=== PATIENT | female | born 1985 | race Caucasian/White ===

== ENCOUNTER 2020-08-18 10:21 | Emergency (ER) | payer OTHER | END 2020-08-18 11:45 | disposition home or self-care (01) | LOC: JVIRT 10:21 | DX: Z11.59 Encounter for screening for other viral diseases (principal) | CPT/HCPCS: C9803; G2012-GT; U0003 ==

== ENCOUNTER 2020-11-25 10:55 | Inpatient (IN) | payer OTHER ==
[2020-11-25] MEDS ORDERED: DINOPROSTONE 10 MG VAGINAL SUPPOSITORY VG ONE (12:00)
[2020-11-25 12:03] VITALS: BMI 34.0
[2020-11-25] MEDS ORDERED: BETAMET ACET/BETAMET NA PH 30 MG/5 ML VIAL IM ONE (12:29)
[2020-11-25 12:44] LABS: BASO % 0.1 % (0-2.0); HEMATOCRIT 36.8 % (32.4-45.2); HEMOGLOBIN 12.1 GM/dL (10.7-15.3); MCH 30.6 pg (25.7-33.7); MCHC 32.9 g/dl (32.0-36.0); MEAN PLT VOLUME 11.7 fl (7.5-11.1); MONO % 6.6 % (3.8-10.2); NEUT % 84.3 % (42.8-82.8); PLATELET COUNT 223 K/MM3 (134-434); RBC 3.95 M/mm3 (3.60-5.2); RDW 13.2 % (11.6-15.6); WHITE BLOOD COUNT 20.1 K/mm3 (4.0-10.0)
[2020-11-25 12:48] LABS: INR 0.94 (0.83-1.09); PROTHROMBIN TIME (PATIENT) 11.4 SEC (9.7-13.0)
[2020-11-25 13:25] LABS: ANISOCYTOSIS 0; MACROCYTOSIS 0; PLATELET ESTIMATE NORMAL
[2020-11-25 13:55] LABS: BLOOD UREA NITROGEN 7.1 mg/dL (7-18); CALCIUM 9.9 mg/dL (8.5-10.1)
[2020-11-25 13:59] LABS: CREATININE 0.6 mg/dL (0.55-1.3)
[2020-11-25 14:24] LABS: SYPHILIS W/ RPR CONF NON-REACTIVE (NONREACTIVE)
[2020-11-25 14:52] LABS: HIV INTERPRETATION NEGATIVE (NEGATIVE)
[2020-11-25] MEDS: DEXTROSE 5%-LACTATED RINGERS 1,000 ML IV SCH (19:12)
[2020-11-26] MEDS ORDERED: MISOPROSTOL 25 MCG TABLET (COMPOUNDED BY PHARMACY) PO SCH (03:46)
[2020-11-26] MEDS: MISOPROSTOL 25 MCG TABLET (COMPOUNDED BY PHARMACY) PO PRN ×2 (04:30→08:50)
[2020-11-26 09:33] LABS: BASO % 0.1 % (0-2.0); HEMATOCRIT 35.9 % (32.4-45.2); HEMOGLOBIN 11.9 GM/dL (10.7-15.3); MCH 30.9 pg (25.7-33.7); MCHC 33.3 g/dl (32.0-36.0); MEAN PLT VOLUME 11.4 fl (7.5-11.1); MONO % 5.2 % (3.8-10.2); NEUT % 84.7 % (42.8-82.8); PLATELET COUNT 225 K/MM3 (134-434); RBC 3.86 M/mm3 (3.60-5.2); RDW 13.2 % (11.6-15.6); WHITE BLOOD COUNT 21.5 K/mm3 (4.0-10.0)
[2020-11-26 12:08] LABS: ANISOCYTOSIS 0; MACROCYTOSIS 0; PLATELET ESTIMATE NORMAL
[2020-11-26] MEDS: LACTATED RINGERS SOLUTION 1000 ML INFUS.BAG IV SCH ×2 (13:31→13:32)
[2020-11-26] MEDS: DEXTROSE 5%-LACTATED RINGERS 1,000 ML IV SCH (18:11)
[2020-11-27 07:55] LABS: BASO % 0.4 % (0-2.0); EOS % 0.6 % (0-4.5); HEMATOCRIT 34.6 % (32.4-45.2); HEMOGLOBIN 11.1 GM/dL (10.7-15.3); LYMPH % 21.2 % (8-40); MCH 30.3 pg (25.7-33.7); MCHC 32.2 g/dl (32.0-36.0); MEAN CELL VOLUME 94.1 fl (80-96); MEAN PLT VOLUME 11.5 fl (7.5-11.1); MONO % 7.1 % (3.8-10.2); NEUT % 70.7 % (42.8-82.8); PLATELET COUNT 216 K/MM3 (134-434); RBC 3.68 M/mm3 (3.60-5.2); RDW 13.5 % (11.6-15.6); WHITE BLOOD COUNT 13.2 K/mm3 (4.0-10.0)
[2020-11-27 11:18] LABS: ANISOCYTOSIS 0; MACROCYTOSIS 1+; OVALOCYTE 1+; PLATELET ESTIMATE NORMAL
[2020-11-27] MEDS: LACTATED RINGERS SOLUTION 1,000 ML IV SCH (14:54)
[2020-11-27 18:30] LABS: PH,URINE 7.5 (5.0-8.0); URINE APPEARANCE CLEAR; URINE BILIRUBIN NEGATIVE (NEGATIVE); URINE COLOR YELLOW; URINE GLUCOSE (UA) NEGATIVE (NEGATIVE); URINE KETONE NEGATIVE (NEGATIVE); URINE LEUK ESTERASE NEGATIVE (NEGATIVE); URINE NITRITE NEGATIVE (NEGATIVE); URINE PROTEIN NEGATIVE (NEGATIVE); URINE UROBILINOGEN 0.2 mg/dL (0.2-1.0)
[2020-11-28] MEDS: LACTATED RINGERS SOLUTION 1,000 ML IV SCH ×2 (08:32→15:33)
[2020-11-28 09:00] LABS: ALBUMIN 2.5 g/dl (3.4-5.0); CALCIUM 8.9 mg/dL (8.5-10.1)
[2020-11-28 09:01] LABS: BLOOD UREA NITROGEN 6.5 mg/dL (7-18)
[2020-11-28 09:05] LABS: BILIRUBIN,TOTAL 0.2 mg/dL (0.2-1); CREATININE 0.5 mg/dL (0.55-1.3)
[2020-12-01 11:48] VITALS: BP 105/72; PULSE 80; TEMP 98
[2020-12-02 15:10] LABS: ALBUMIN % 20.8 % (.); ALPHA-1 FOR UPE 2.7 % (.); TOTAL PROTEIN, URINE 14.7 mg/dL (Not Estab.)
== END 2020-12-01 12:15 | disposition home or self-care (01) | DRG 566 ==
LOC: JLDR 10:55 → J3W 11-26 13:20
PROVIDERS: ADMIT Obstetrics & Gynecology; ATTEND Obstetrics & Gynecology
DX: O41.03X0 Oligohydramnios, third trimester, not applicable or unspecified (principal); O99.213 Obesity complicating pregnancy, third trimester; Z3A.35 35 weeks gestation of pregnancy
CPT/HCPCS: 36415; 59025; 80048; 80053; 81003; 82570; 84156; 84166; 85025; 85610; 85730; 86780; 86850; 86900; 86901; 87081; 87086; 87389; 87491; 87591; 96372; C9803; G0463-25; U0003; U0005

== ENCOUNTER 2020-12-23 12:40 | Inpatient (IN) | payer OTHER ==
[2020-12-23] MEDS ORDERED: DINOPROSTONE 10 MG VAGINAL SUPPOSITORY VG ONE (14:00)
[2020-12-23 14:21] VITALS: BMI 34.7
[2020-12-23 14:25] LABS: PH,URINE 6.5 (5.0-8.0); URINE APPEARANCE CLEAR; URINE BILIRUBIN NEGATIVE (NEGATIVE); URINE COLOR YELLOW; URINE GLUCOSE (UA) NEGATIVE (NEGATIVE); URINE KETONE TRACE (NEGATIVE); URINE LEUK ESTERASE NEGATIVE (NEGATIVE); URINE NITRITE NEGATIVE (NEGATIVE); URINE PROTEIN TRACE (NEGATIVE)
[2020-12-23] MEDS: ELECTROLYTE-148 SOLN 1,000 ML IV SCH (14:30)
[2020-12-23 15:07] LABS: OPIATES, URI NEGATIVE ng/ml (CUTOFF=300)
[2020-12-23 15:08] LABS: METHADONE, UR NEGATIVE ng/ml (CUTOFF=300); URINE AMPHETAMINES NEGATIVE ng/ml (CUTOFF=500); URINE BARBITURATES NEGATIVE ng/ml (CUTOFF=200)
[2020-12-23 15:09] LABS: URINE BENZODIAZEPINES NEGATIVE ng/ml (CUTOFF=200)
[2020-12-23 15:13] LABS: COCAINE, UR NEGATIVE ng/ml (CUTOFF=300); PHENCYCLIDINE,URINE NEGATIVE ng/ml (CUTOFF=25)
[2020-12-23 15:22] LABS: BASO % 0.3 % (0-2.0); EOS % 1.4 % (0-4.5); HEMATOCRIT 36.7 % (32.4-45.2); HEMOGLOBIN 12.2 GM/dL (10.7-15.3); LYMPH % 20.6 % (8-40); MCHC 33.3 g/dl (32.0-36.0); MEAN PLT VOLUME 11.5 fl (7.5-11.1); MONO % 8.1 % (3.8-10.2); NEUT % 69.6 % (42.8-82.8); PLATELET COUNT 225 K/MM3 (134-434); RBC 3.94 M/mm3 (3.60-5.2); RDW 13.2 % (11.6-15.6); WHITE BLOOD COUNT 10.7 K/mm3 (4.0-10.0)
[2020-12-23 15:44] LABS: ALBUMIN 2.7 g/dl (3.4-5.0); BLOOD UREA NITROGEN 10.8 mg/dL (7-18); CALCIUM 9.3 mg/dL (8.5-10.1)
[2020-12-23 15:48] LABS: CREATININE 0.5 mg/dL (0.55-1.3)
[2020-12-23 15:49] LABS: BILIRUBIN,TOTAL 0.2 mg/dL (0.2-1); TOT PROT 6.2 g/dl (6.4-8.2)
[2020-12-24] MEDS ORDERED: DINOPROSTONE 10 MG VAGINAL SUPPOSITORY VG ONE ×2 (02:55→16:14)
[2020-12-24] MEDS: ELECTROLYTE-148 SOLN 1,000 ML IV SCH ×2 (13:50→14:00)
[2020-12-25] MEDS: ELECTROLYTE-148 SOLN 1,000 ML IV SCH ×3 (06:00→12:45)
[2020-12-25] MEDS ORDERED: PROMETHAZINE HCL 25 MG/1 ML VIAL IVPB ONE (07:15)
[2020-12-25] MEDS ORDERED: BUTORPHANOL TARTRATE 2 MG/ML VIAL IVPB ONE (07:15)
[2020-12-25] MEDS ORDERED: BUTORPHANOL TARTRATE 2 MG/ML VIAL ONE (07:19)
[2020-12-25] MEDS ORDERED: PROMETHAZINE HCL 25 MG/1 ML VIAL ONE (07:19)
[2020-12-25] MEDS ORDERED: OXYTOCIN 30 UNITS in 0.9% NS 30 UNIT/500 ML INFUS.BAG IVPB ONE (08:58)
[2020-12-25] MEDS ORDERED: OXYTOCIN 30 UNITS in 0.9% NS 30 UNIT/500 ML INFUS.BAG IVPB SCH (09:00)
[2020-12-25] MEDS ORDERED: PCA PUMP NR ONE (11:48)
[2020-12-25] MEDS ORDERED: FENTANYL/BUPIVACAINE/NS/PF - PCEA - 50 ML DISP.SYRIN EP ONE ×2 (11:49→16:25)
[2020-12-25] MEDS: FENTANYL/BUPIVACAINE/NS/PF - PCEA - 50 ML DISP.SYRIN EP SCH ×2 (12:15→16:27)
[2020-12-25] MEDS ORDERED: NALOXONE HCL 0.4 MG/ML VIAL IVPUSH PRN (12:27)
[2020-12-25] MEDS ORDERED: OXYTOCIN 20 UNITS in 0.9% NS 20 UNIT/1,000 ML INFUS.BAG IV ONE (17:04)
[2020-12-25] MEDS ORDERED: LIDOCAINE HCL 1% PRESERVATIVE FREE - 30ML VIAL ONE (17:04)
[2020-12-25] MEDS ORDERED: BENZOCAINE 20% 57 GM BOTTLE TP PRN (18:26)
[2020-12-25] MEDS ORDERED: WITCH HAZEL 50% (TUCKS) 40 PAD/JAR PAD TP PRN (18:26)
[2020-12-25] MEDS ORDERED: BENZOCAINE 28 GM HEMORRHOIDAL OINTMENT TP PRN (18:26)
[2020-12-25] MEDS ORDERED: BISACODYL 10 MG SUPP.RECT RC PRN (18:26)
[2020-12-25] MEDS ORDERED: OXYTOCIN 20 UNITS in 0.9% NS 20 UNIT/1,000 ML INFUS.BAG IV SCH (18:30)
[2020-12-26] MEDS: ACETAMINOPHEN 325 MG TABLET (FP) PO PRN ×3 (05:58→21:22)
[2020-12-26] MEDS: IBUPROFEN 600 MG TABLET (FP) PO PRN ×3 (05:59→21:22)
[2020-12-26 07:52] LABS: BASO % 0.4 % (0-2.0); EOS % 0.8 % (0-4.5); HEMATOCRIT 35.6 % (32.4-45.2); HEMOGLOBIN 11.8 GM/dL (10.7-15.3); LYMPH % 15.2 % (8-40); MCH 30.9 pg (25.7-33.7); MCHC 33.2 g/dl (32.0-36.0); MEAN CELL VOLUME 93.3 fl (80-96); MONO % 7.1 % (3.8-10.2); NEUT % 76.5 % (42.8-82.8); PLATELET COUNT 212 K/MM3 (134-434); RBC 3.82 M/mm3 (3.60-5.2); RDW 13.5 % (11.6-15.6); WHITE BLOOD COUNT 19.8 K/mm3 (4.0-10.0)
[2020-12-26] MEDS ORDERED: DIPHTH,PERTUSS(ACELL),TET 0.5 ML DISP.SYRIN IM ONE (10:00)
[2020-12-26] MEDS ORDERED: SENNOSIDES/DOCUSATE COMBO (SENNA PLUS) TABLET (UD) PO PRN (22:00)
[2020-12-27 13:04] VITALS: BP 126/72; PULSE 82; TEMP 98.6
[2020-12-27] MEDS: IBUPROFEN 600 MG TABLET (FP) PO PRN (13:27)
[2020-12-27] MEDS: ACETAMINOPHEN 325 MG TABLET (FP) PO PRN (13:28)
== END 2020-12-27 14:15 | disposition home or self-care (01) | DRG 560 ==
LOC: JLDR 12:40 → J3W 12-25 20:22
PROVIDERS: ADMIT Student in an Organized Health Care Education/Training Program; ATTEND Student in an Organized Health Care Education/Training Program
PROC: 3E033VJ Introduction of Other Hormone into Peripheral Vein, Percutaneous Approach (ICD-10-PCS; principal; 2020-12-23)
PROC: 10E0XZZ Delivery of Products of Conception, External Approach (ICD-10-PCS; 2020-12-25)
PROC: 0W8NXZZ Division of Female Perineum, External Approach (ICD-10-PCS; 2020-12-25)
PROC: 0HQ9XZZ Repair Perineum Skin, External Approach (ICD-10-PCS; 2020-12-25)
DX: O41.03X0 Oligohydramnios, third trimester, not applicable or unspecified (principal); O43.213 Placenta accreta, third trimester; O99.214 Obesity complicating childbirth; E66.9 Obesity, unspecified; O70.0 First degree perineal laceration during delivery; Z3A.39 39 weeks gestation of pregnancy; Z37.0 Single live birth
CPT/HCPCS: 36415; 59409; 80048; 80053; 80307; 81003; 85025; 86780; 86850; 86900; 86901; 90715; C9803; U0003; U0005